=== PATIENT | female | born 1965 | race Caucasian/White ===

== ENCOUNTER 2021-01-30 15:33 | Outpatient (CLI) | payer BC | END 2021-01-30 15:34 | disposition home or self-care (01) | LOC: CSHMAMMO 15:33 | PROVIDERS: ATTEND Obstetrics & Gynecology | DX: Z12.31 Encounter for screening mammogram for malignant neoplasm of breast (principal) | CPT/HCPCS: 77063; 77067 ==

== ENCOUNTER 2022-02-06 15:12 | Outpatient (CLI) | payer BC | END 2022-02-06 15:13 | disposition home or self-care (01) | LOC: CSHMAMMO 15:12 | PROVIDERS: ATTEND Family Medicine | DX: Z12.31 Encounter for screening mammogram for malignant neoplasm of breast (principal); Z85.3 Personal history of malignant neoplasm of breast; Z90.12 Acquired absence of left breast and nipple | CPT/HCPCS: 77063; 77067 ==

== ENCOUNTER 2022-09-25 10:55 | Outpatient (CLI) | payer BC | END 2022-09-25 10:56 | disposition home or self-care (01) | LOC: CSHMAMMO 10:55 | PROVIDERS: ATTEND Obstetrics & Gynecology | DX: M81.0 Age-related osteoporosis without current pathological fracture (principal); M85.89 Other specified disorders of bone density and structure, multiple sites | CPT/HCPCS: 77080 ==

== ENCOUNTER 2023-05-22 14:19 | Outpatient (CLI) | payer BC | END 2023-05-22 14:20 | disposition home or self-care (01) | LOC: CSHMAMMO 14:19 | PROVIDERS: ATTEND Obstetrics & Gynecology | DX: Z12.31 Encounter for screening mammogram for malignant neoplasm of breast (principal); Z85.3 Personal history of malignant neoplasm of breast | CPT/HCPCS: 77063; 77067 ==